=== PATIENT | female | born 1965 | race Caucasian/White ===

== ENCOUNTER 2024-05-06 10:38 | Emergency (ER) | payer OTHER, SELFPAY ==
[2024-05-06] VITALS (19 sets, daily range): BP systolic 169–180; BP diastolic 100–108; PULSE 95–119; TEMP 36.4; O2SAT 95–100; BMI 26.6
--- NOTE | 2024-05-06 11:59 | ECG_ITS ---
The [facility] Test Date: 2024-05-06 Pat Name: MAURICIO SRIVASTAVA Department: Room: - Gender: Female Bridal Consultant: : 1965 Requested By: [id number] Order Number: [id number] Reading MD: FELY SINHA Measurements Intervals [place] Rate: 108 P: 73 MO: 134 QRS: 94 QRSD: 76 T: 72 QT: 342 QTc: 405 Interpretive Statements 1120 Sinus tachycardia 7102 Moderate right axis deviation 9140 abnormal rhythm ECG No previous ECG available for comparison Electronically Signed On 05-06-2024 21:46:07 EDT by FELY SINHA
--- NOTE | 2024-05-06 11:59 | XR_ITS ---
The [address] [address] Patient Name: MAURICIO SRIVASTAVA MRN: [id number] date: 1965 Sex: F Assigned Patient Location: ER Current Patient Location: ER Accession/Order Number: [id number] Exam Date: 05/06/2024 12:10 Report Date: 05/06/2024 12:32 At the request of: [employer] Procedure: XR acute abdomen series EXAMINATION: XR acute abdomen series HISTORY: chest pain COMPARISON: No relevant comparison available. FINDINGS: LUNGS: The right lung is clear. Left lung volume loss with diffuse parenchymal infiltrates. Consolidation of the left upper lung zone. MEDIASTINUM: Shift of heart and mediastinal structures towards the left BOWEL GAS PATTERN: Non-obstructed. FREE AIR: None. CALCIFICATIONS: None significant. BONES: No fracture or visible bone lesion. OTHER: Moderate stool right colon. XR/XR acute abdomen series IMPRESSION: Diffuse left lung opacification with left upper lung zone consolidation. Consider CT scan with contrast for further evaluation to exclude an underlying mass Nonobstructive bowel gas pattern Electronically authenticated by: MARY GOMEZ Date: 05/06/2024 12:32
[2024-05-06 12:19] LABS: Basophils Absolute Auto 0.1 10^3/uL (0.0-0.1); Basophils Percent Auto 0.6 % (0.2-2.0); Eosinophils Absolute Auto 0.3 10^3/uL (0.0-0.7); Eosinophils Percent Auto 2.7 % (0.9-7.0); Hematocrit 42.7 % (36.0-48.0); Hemoglobin 13.9 g/dL (12.0-16.0); Immature Granulocytes Abs Auto 0.03 10^3/uL (0.00-0.03); Immature Granulocytes Pct Auto 0.2 % (0.0-0.5); Lymphocytes Absolute Auto 3.7 10^3/uL (1.2-3.8); Lymphocytes Percent Auto 29.2 % (20.5-60.0); Mean Corpuscular HGB Conc 32.6 g/dL (29.9-35.2); Mean Corpuscular Hemoglobin 27.4 pg (26.7-34.0); Mean Corpuscular Volume 84.1 fL (81.0-99.0); Mean Platelet Volume 11.2 fL (9.5-13.5); Monocytes Absolute Auto 0.9 10^3/uL (0.3-0.8); Monocytes Percent Auto 7.2 % (1.7-12.0); Neutrophils Absolute Auto 7.5 10^3/uL (1.4-6.5); Neutrophils Percent Auto 60.1 % (43.0-75.0); Platelet Count 346 10^3/uL (150-450); Red Blood Count 5.08 10^6/uL (4.20-5.40); White Blood Count 12.5 10^3/uL (4.0-11.0)
[2024-05-06 12:51] LABS: Alanine Aminotransferase 17 U/L (14-59); Alkaline Phosphatase 130 U/L (46-116); Anion Gap 11.4; Aspartate Amino Transferase 19 U/L (15-37); BUN Creatinine Ratio 20.9; Bilirubin Total 0.4 mg/dL (0.2-1.0); Calcium 9.4 mg/dL (8.5-10.1); Carbon Dioxide 29.6 mmol/L (21.0-32.0); Chloride 101 mmol/L (98-107); Estimated GFR (African America 59 (>=60); Estimated GFR (Non-African Ame 48 (>=60); Glucose 83 mg/dL (74-106); Sodium 138 mmol/L (136-145)
[2024-05-06 13:00] LABS: Lactate/Lactic Acid 1.3 mmol/L (0.4-2.0)
--- NOTE | 2024-05-06 13:32 | CT_ITS ---
The [address] [address] Patient Name: MAURICIO SRIVASTAVA MRN: [id number] date: 1965 Sex: F Assigned Patient Location: ER Current Patient Location: ER Accession/Order Number: [id number] Exam Date: 05/06/2024 13:23 Report Date: 05/06/2024 14:06 At the request of: [employer] Procedure: CT head/brain wo con EXAMINATION: CT head/brain wo con, 05/06/2024 1:23 PM EDT HISTORY: Altered mental status COMPARISON: None. TECHNIQUE: CT scan of the head was performed without IV contrast. CT dose reduction technique was used, including Automated Exposure Control. FINDINGS: BRAIN: No edema, hemorrhage, mass, acute infarction, or inappropriate atrophy. Mild white matter hypoattenuation CSF SPACES: No hydrocephalus, subarachnoid hemorrhage, or mass. Appropriate for age. SKULL: No fracture, mass, or other significant visible lesion. SINUSES: No significant mucosal thickening or fluid on the limited views. ORBITS: No appreciable abnormality on the limited views. OTHER: Negative CT/CT head/brain wo con IMPRESSION: No acute intracranial abnormality Electronically authenticated by: MARY GOMEZ Date: 05/06/2024 14:06
--- NOTE | 2024-05-06 13:32 | CT_ITS ---
The [address] [address] Patient Name: MAURICIO SRIVASTAVA MRN: [id number] date: 1965 Sex: F Assigned Patient Location: ER Current Patient Location: ER Accession/Order Number: [id number] Exam Date: 05/06/2024 13:23 Report Date: 05/06/2024 13:53 At the request of: [employer] Procedure: CT chest wo con EXAMINATION: CT chest wo con HISTORY: Mass COMPARISON: Plain x-ray 05/06/2024 TECHNIQUE: Multi-planar CT images were created with IV contrast. Axial, Coronal, and Sagittal images. Dose reduction techniques were achieved by using automated exposure control and/or adjustment of mA and/or kV according to patient size and/or use of iterative reconstruction technique. FINDINGS: LUNGS: Left lung volume loss. Left upper lobectomy. Patchy opacities and pleural thickening in the left upper lung zone. Moderate diffuse centrilobular emphysema. Right apical pleural parenchymal scarring PLEURA: Calcified pleural plaques suggesting prior asbestos exposure VASCULATURE: No abnormality. NITISH: No mass or adenopathy. MEDIASTINUM: No mass or adenopathy. CARDIAC: No enlargement or pericardial effusion Coronary arteries: Absent calcifications AORTA: No aortic aneurysm. Mild calcific atherosclerosis CHEST WALL: No mass or axillary adenopathy. BONES: No bone lesion or fracture. LIMITED ABDOMEN: No suspicious findings. Limited images of the upper abdomen. OTHER: Negative. CT/CT chest wo con IMPRESSION: Left upper lobectomy with left lung volume loss and left apical soft tissue opacity/parenchymal scarring/pleural thickening. I favor postsurgical and/or posttreatment changes although interval change cannot be determined without prior exam Moderate diffuse centrilobular emphysema Electronically authenticated by: MARY GOMEZ Date: 05/06/2024 13:53
[2024-05-06] MEDS: 0.9 % SODIUM CHLORIDE 1,000 ML 1000 ML IV (13:43)
[2024-05-06 14:20] LABS: Ammonia 17 umol/L (11-32)
[2024-05-06 14:34] LABS: Bilirubin Urine NEGATIVE (NEGATIVE); Blood Urine NEGATIVE (NEGATIVE); Clarity Urine CLOUDY (CLEAR); Color Urine YELLOW (YELLOW); Glucose Urine UA NEGATIVE (NEGATIVE); Ketones Urine TRACE mg/dL (NEGATIVE); Leukocyte Esterase Urine NEGATIVE (NEGATIVE); Nitrite Urine NEGATIVE (NEGATIVE); Protein Urine NEGATIVE (NEG/TRACE); Specific Gravity Urine >=1.030 (1.005-1.025); Urobilinogen Urine 0.2 EU/dL (0.2-1.0); pH Urine 5.5 (5.0-9.0)
[2024-05-06 14:54] LABS: Urine Microscopic Indicated NO
--- NOTE | 2024-05-06 15:12 | ED_ITS ---
HPI - Recheck/Abnormal Lab/Rx General Chief Complaint: Recheck/Abnormal Lab/Rx Stated Complaint: HIGH BLOOD PRESSURE, SOB Time Seen by Provider: 05/06/24 12:28 Source: patient History of Present Illness HPI narrative: This patient is here for evaluation after being at 6 another facility. She apparently was at a urgent care today. She was there to recheck on some history of leg cellulitis. She was seen at the clinic on February 25 for chronic low back pain. She had been missing pain management follow-up. And then on today she was over there for evaluation of possible cellulitis in her legs. She also has hypertension. She is here with a male die maker bench stamping. She is worried because she wants to go out to [place] in a couple weeks for vacation. She has very little insight into her medical history and problems. She according to her old medical records has some history of bipolar illness and transient memory loss and depression. Related Data Allergies Allergy/AdvReac Type Severity Reaction Status Date / Time No Known Allergies Allergy Mild Verified 05/06/24 11:27 Exam Narrative Exam Narrative: Patient is awake and alert here with a male die maker bench stamping she is fully ambulatory does not appear ill or toxic. Her blood pressure is noted to be elevated. She cannot tell us what meds she is supposed to be taking or is taking. Her records from the urgent care indicate that she is supposed to be taking amlodipine and losartan. Additionally she is supposed to be on spironolactone but that was kaushal arently discontinued in the past. She is awake alert poor historian she is oriented x 3 but does not have cohesive line of thought. There is no evidence of craniofacial trauma injuries or problems. Her neck is soft and supple there is no meningeal irritation or nuchal rigidity or light sensitivity. GCS is 15. HEENT shows no focus of infection airway is widely patent there is no conjunctivitis or facial swelling. Her lungs are clear no wheeze rales or rhonchi heart sounds are normal no S3-S4 or murmur. Extremities do not have edema phlebitis cellulitis tenderness swelling. They both have good pulses at dorsalis pedis. There is no evidence of hypoperfusion. Constitutional Vital Signs, click to edit/add: Last Vital Signs Temp 97.5 F L 05/06/24 11:20 Pulse 106 H 05/06/24 14:25 Resp 17 05/06/24 14:10 BP 180/100 H 05/06/24 14:25 Pulse Ox 97 05/06/24 13:20 O2 Del Method Room Air 05/06/24 11:20 Course Vital Signs Vital signs: Vital Signs Temperature 97.5 F L 05/06/24 11:20 Pulse Rate 112 H 05/06/24 11:20 Respiratory Rate 24 H 05/06/24 11:20 Blood Pressure 169/108 H 05/06/24 11:20 Pulse Oximetry 99 05/06/24 11:20 Oxygen Delivery Method Room Air 05/06/24 11:20 Temperature 97.5 F L 05/06/24 11:20 Pulse Rate 106 H 05/06/24 14:25 Respiratory Rate 17 05/06/24 14:10 Blood Pressure 180/100 H 05/06/24 14:25 Pulse Oximetry 97 05/06/24 13:20 Oxygen Delivery Method Room Air 05/06/24 11:20 MDM - Recheck/Abnormal Lab/Rx MDM Narrative Medical decision making narrative: We were able to obtain records from the urgent care. We do not find any acute emergency medical condition today. This was discussed including the laboratory test with her. She can follow-up with that center for ongoing treatment of her blood pressure and refill for all her meds and she is agreeable to do so Lab Data Labs: Lab Results 05/06/24 05/06/24 05/06/24 Range/Units 11:53 12:26 13:38 WBC 12.5 H (4.0-11.0) 10^3/uL RBC 5.08 (4.20-5.40) 10^6/uL Hgb 13.9 (12.0-16.0) g/dL Hct 42.7 (36.0-48.0) % MCV 84.1 (81.0-99.0) fL MCH 27.4 (26.7-34.0) pg MCHC 32.6 (29.9-35.2) g/dL RDW 14.0 (11.0-15.0) % Plt Count 346 (150-450) 10^3/uL MPV 11.2 (9.5-13.5) fL Neut % (Auto) 60.1 (43.0-75.0) % Lymph % (Auto) 29.2 (20.5-60.0) % Gregory % (Auto) 7.2 (1.7-12.0) % Eos % (Auto) 2.7 (0.9-7.0) % Baso % (Auto) 0.6 (0.2-2.0) % Neut # (Auto) 7.5 H (1.4-6.5) 10^3/uL Lymph # (Auto) 3.7 (1.2-3.8) 10^3/uL Gregory # (Auto) 0.9 H (0.3-0.8) 10^3/uL Eos # (Auto) 0.3 (0.0-0.7) 10^3/uL Baso # (Auto) 0.1 (0.0-0.1) 10^3/uL Abs Immat Gran (auto) 0.03 (0.00-0.03) 10^3/uL Imm/Tot Granulo (auto) 0.2 (0.0-0.5) % Sodium 138 (136-145) mmol/L Potassium 4.0 (3.5-5.1) mmol/L Chloride 101 (98-107) mmol/L Carbon Dioxide 29.6 (21.0-32.0) mmol/L Anion Gap 11.4 BUN 24.0 H (7.0-18.0) mg/dL Creatinine 1.15 H (0.55-1.02) mg/dL Est GFR ( Amer) 59 L (>=60) Est GFR (Non-Af Amer) 48 L (>=60) BUN/Creatinine Ratio 20.9 Glucose 83 (74-106) mg/dL Lactate 1.3 (0.4-2.0) mmol/L Calcium 9.4 (8.5-10.1) mg/dL Total Bilirubin 0.4 (0.2-1.0) mg/dL AST 19 (15-37) U/L ALT 17 (14-59) U/L Alkaline Phosphatase 130 H (46-116) U/L Ammonia (11-32) umol/L Troponin I High Sens 13.0 (4.0-51.3) pg/mL Total Protein 8.0 (6.4-8.2) g/dL Albumin 4.0 (3.4-5.0) g/dL Globulin 4.0 g/dL Albumin/Globulin Ratio 1.0 Urine Color Yellow (YELLOW) Urine Clarity Cloudy A (CLEAR) Urine pH 5.5 (5.0-9.0) Ur Specific [place] >=1.030 A (1.005-1.025) Urine Protein Negative (NEG/TRACE) mg/dL Urine Glucose (UA) Negative (NEGATIVE) mg/dL Urine Ketones Trace A (NEGATIVE) mg/dL Urine Occult Blood Negative (NEGATIVE) Urine Nitrite Negative (NEGATIVE) Urine Bilirubin Negative (NEGATIVE) Urine Urobilinogen 0.2 (0.2-1.0) EU/dL Ur Leukocyte Esterase Negative (NEGATIVE) 05/06/24 Range/Units 13:56 WBC (4.0-11.0) 10^3/uL RBC (4.20-5.40) 10^6/uL Hgb (12.0-16.0) g/dL Hct (36.0-48.0) % MCV (81.0-99.0) fL MCH (26.7-34.0) pg MCHC (29.9-35.2) g/dL RDW (11.0-15.0) % Plt Count (150-450) 10^3/uL MPV (9.5-13.5) fL Neut % (Auto) (43.0-75.0) % Lymph % (Auto) (20.5-60.0) % Gregory % (Auto) (1.7-12.0) % Eos % (Auto) (0.9-7.0) % Baso % (Auto) (0.2-2.0) % Neut # (Auto) (1.4-6.5) 10^3/uL Lymph # (Auto) (1.2-3.8) 10^3/uL Gregory # (Auto) (0.3-0.8) 10^3/uL Eos # (Auto) (0.0-0.7) 10^3/uL Baso # (Auto) (0.0-0.1) 10^3/uL Abs Immat Gran (auto) (0.00-0.03) 10^3/uL Imm/Tot Granulo (auto) (0.0-0.5) % Sodium (136-145) mmol/L Potassium (3.5-5.1) mmol/L Chloride (98-107) mmol/L Carbon Dioxide (21.0-32.0) mmol/L Anion Gap BUN (7.0-18.0) mg/dL Creatinine (0.55-1.02) mg/dL Est GFR ( Amer) (>=60) Est GFR (Non-Af Amer) (>=60) BUN/Creatinine Ratio Glucose (74-106) mg/dL Lactate (0.4-2.0) mmol/L Calcium (8.5-10.1) mg/dL Total Bilirubin (0.2-1.0) mg/dL AST (15-37) U/L ALT (14-59) U/L Alkaline Phosphatase (46-116) U/L Ammonia 17 (11-32) umol/L Troponin I High Sens (4.0-51.3) pg/mL Total Protein (6.4-8.2) g/dL Albumin (3.4-5.0) g/dL Globulin g/dL Albumin/Globulin Ratio Urine Color (YELLOW) Urine Clarity (CLEAR) Urine pH (5.0-9.0) Ur Specific [place] (1.005-1.025) Urine Protein (NEG/TRACE) mg/dL Urine Glucose (UA) (NEGATIVE) mg/dL Urine Ketones (NEGATIVE) mg/dL Urine Occult Blood (NEGATIVE) Urine Nitrite (NEGATIVE) Urine Bilirubin (NEGATIVE) Urine Urobilinogen (0.2-1.0) EU/dL Ur Leukocyte Esterase (NEGATIVE) Discharge Plan Discharge Stand Alone Forms: Portal Instructions Chief Complaint: Recheck/Abnormal Lab/Rx Clinical Impression: Encounter for wound re-check Patient Disposition: Home, Self-Care Time of Disposition Decision: 15:11 Print Language: [place]ill[place] Instructions: Hypertension (ED) Additional Instructions: Continue present care and medication. All your laboratory testing today is essentially normal Referrals: Dariel Phillips [Primary Care Provider] - 1 week
== END 2024-05-06 15:16 | disposition home or self-care (01) ==
PROVIDERS: Emergency Provider Emergency Medicine Emergency Medical Services
DX: Z09 Encounter for follow-up examination after completed treatment for conditions other than malignant neoplasm (principal); I10 Essential (primary) hypertension
CPT/HCPCS: 36415; 70450; 71250; 74022; 80053; 81003; 82140; 83605; 84484; 85025; 93005; 99285

== ENCOUNTER 2025-01-14 18:06 | Emergency (ER) | payer OTHER, SELFPAY ==
[2025-01-14 18:21] VITALS: BP 180/80; PULSE 95; TEMP 36.8; O2SAT 97; BMI 28.0
--- NOTE | 2025-01-14 18:34 | ED_ITS ---
HPI HPI - General Adult General Chief complaint: Shortness of Breath/Dyspnea Stated complaint: SOB, NAUSEA Time Seen by Provider: 01/14/25 18:23 Source: patient Mode of arrival: Wheelchair Limitations: no limitations History of Present Illness HPI narrative: Patient presents to the emergency department complaining of a migraine headache. She states that she has a longstanding history of migraine headaches and this is similar in location and quality to her usual migraine headache. She also complains of sore throat and cough congestion along with shortness of breath. She went to urgent care and was directed to the ED. She drove herself here. She is a cigarette smoker. She states that she is out of her inhalers. She takes amlodipine and losartan for hypertension but has been out of those medications for some time also. She states that she does not have a PCP right now because she missed a number of appointments at [facility]. Related Data Allergies Allergy/AdvReac Type Severity Reaction Status Date / Time No Known Allergies Allergy Unknown Unknown Verified 01/14/25 18:21 Opioid HPI Opioid Management Most Recent Opioid Data: No Data to Display Review of Systems ROS Status of ROS 10 or more systems reviewed and unremark able except as noted in history and below [facility] Social History Little interest or pleasure in doing things: not at all Feeling down, depressed, or hopeless: not at all Exam Narrative Exam Narrative: Patient's blood pressure is elevated at 180/80. She is afebrile and oxygen saturation is 97% on room air. There is some inspissated sputum in the back of her throat but no erythema. Tympanic membranes are clear bilaterally. Neck is supple. Lung sounds reveal loud rhonchi in all lung zones mostly the upper lung zones. Heart has distant sounds with regular rate and rhythm. Abdomen is soft nontender. Extremities are warm and dry. She moves all extremities actively. There is no facial asymmetry. Speech and mentation are clear and intact. Constitutional Vital Signs, click to edit/add: Last Vital Signs Temp 98.3 F 01/14/25 18:21 Pulse 95 H 01/14/25 18:21 Resp 20 01/14/25 18:21 BP 180/80 H 01/14/25 18:21 Pulse Ox 97 01/14/25 18:21 O2 Del Method Room Air 01/14/25 18:21 Course Vital Signs Vital signs: Vital Signs Temperature 98.3 F 01/14/25 18:21 Pulse Rate 95 H 01/14/25 18:21 Respiratory Rate 20 01/14/25 18:21 Blood Pressure 180/80 H 01/14/25 18:21 Pulse Oximetry 97 01/14/25 18:21 Oxygen Delivery Method Room Air 01/14/25 18:21 Temperature 98.3 F 01/14/25 18:21 Pulse Rate 95 H 01/14/25 18:21 Respiratory Rate 20 01/14/25 18:21 Blood Pressure 180/80 H 01/14/25 18:21 Pulse Oximetry 97 01/14/25 18:21 Oxygen Delivery Method Room Air 01/14/25 18:21 Medical Decision Making MDM Narrative Medical decision making narrative: Patient presents with complaints of a migraine headache which is typical of her usual migraine headaches. She also complains of shortness of breath and is wheezing. Her history is consistent with asthma/COPD. The plan is to treat her with a DuoNeb aerosol treatment and treat her headache with IV Solu-Medrol, Toradol, Zofran. Chest x-ray has been ordered. Care will be transferred to oncoming physician at change of shift for further evaluation and eventual disposition. Discharge Plan Discharge Stand Alone Forms: Portal Instructions Chief Complaint: Shortness of Breath/Dyspnea Patient Disposition: Left Against Medical Advice Mode of Transportation: Private Vehicle Print Language: Irish Referrals: Dariel Phillips [Primary Care Provider] - 1 week Discharge Date/Time: 01/14/25 19:05
--- NOTE | 2025-01-14 19:08 | RESP.RT ---
upon entering the room patient stated that she wanted to leave and did not want the breathing treatment. I informed her nurse at this time.
== END 2025-01-14 19:05 | disposition left against medical advice (07) ==
PROVIDERS: Emergency Provider Emergency Medicine
DX: R06.02 Shortness of breath (principal); Z53.29 Procedure and treatment not carried out because of patient's decision for other reasons; F17.210 Nicotine dependence, cigarettes, uncomplicated; I10 Essential (primary) hypertension; Z79.899 Other long term (current) drug therapy; G43.909 Migraine, unspecified, not intractable, without status migrainosus; Z20.822 Contact with and (suspected) exposure to COVID-19
CPT/HCPCS: 71045; 99285